=== PATIENT | male | born 1975 | race Caucasian/White ===

== ENCOUNTER 2018-05-23 06:19 | Observation (INO) ==
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
--- NOTE | 2018-05-22 11:22 | History and Physical Report ---
DATE OF ADMISSION: 05/23/2018 CHIEF COMPLAINT: Arm pain, weakness of upper extremity, difficulty. HISTORY: Maryann is delightful. He is 42. He has immense compromised left upper extremity profound weakness, deficits to his trapezius, deltoid function, biceps function. He has 2-level cervical spine cord compression. PAST MEDICAL HISTORY: Rheumatoid arthritis, anxiety. No hypertension, no carcinoma. Positive for obesity. PAST SURGICAL HISTORY: Includes bilateral hip surgery, cholecystectomy, ankle surgery. ALLERGIES: TRAMADOL, PENICILLIN. MEDICATIONS: Zanaflex, Percocet, B12. REVIEW OF SYSTEMS: He denies any blurred vision, double vision, tinnitus, or vertigo. Denies any fevers, sweats, chills. Denies any chest pain, palpitations. No shortness of breath. No nausea, vomiting. No urgency, frequency. No dysuria. No memory loss, sleep issues, or depression. OBJECTIVE: GENERAL: He is 5 feet 11 inches. He is 326 pounds. He is in distress. HEENT: Essentially normal. LUNGS: Clear to auscultation. CARDIAC: Regular rate and rhythm, 80 beats per minute. ABDOMEN: Soft, nontender, bowel sounds present. He is obese. NEUROLOGICAL: He has deficits of biceps, triceps function, loss of reflexes. He has no hyperreflexia. IMAGING: X-rays demonstrate 2-level pathology, cervical spine, C4-C5, C5-C6. IMPRESSION: Cord compression, cervical spine, C4-C5, C5-C6. PLAN: Includes an ACDF of cervical spine with iliac crest bone graft, C4-C5 and C5-C6.
[~2018-05-23 06:19] MED LIST: CLINDAMYCIN 600 MG/54 ML BAG IV SCH; LR 15ML/HR IV SCH; LR 60ML/HR IV SCH; SODIUM CHLORIDE 0.9% 1,000 ML IV SCH
[2018-05-23] MEDS ORDERED: ONDANSETRON INJ 2 MG/ML 2 ML VIAL ONE (06:52)
[2018-05-23] MEDS ORDERED: DEXAMETHASONE SOD INJ 4 MG/ML VIAL ONE (06:52)
[2018-05-23] MEDS ORDERED: fentaNYL citrate 100 MCG/2 ML VIAL ONE ×4 (06:52→10:00)
[2018-05-23] MEDS ORDERED: MIDAZOLAM HCL 1 MG/ML 2ML VIAL ONE (06:52)
[2018-05-23] MEDS ORDERED: PROPOFOL IV EMULSION 10 MG/ML 20 ML VIAL IV ONE ×2 (06:52→09:42)
[2018-05-23] MEDS ORDERED: LIDOCAINE HCL 2% 2 ML VIAL/AMP(20MG/ML) INFIL ONE (06:52)
[2018-05-23] MEDS ORDERED: SUCCINYLCHOLINE CHLORIDE 20 MG/ML 10 ML VIAL ONE (06:52)
[2018-05-23] MEDS ORDERED: ROCURONIUM BROMIDE 10 MG/ML 5 ML VIAL ONE (06:52)
[2018-05-23] MEDS ORDERED: LARYING-O-JET KIT (LTA) ONE (06:52)
[2018-05-23] MEDS ORDERED: ACETAMINOPHEN 1000 MG/100 ML IV IV ONE (07:07)
--- NOTE | 2018-05-23 07:15 | History & Physical Bridge Note ---
Date of Service May 23, 2018 History & Physical Bridge Note I have examined the patient, reviewed the History & Physical and in the interval since the performance of the History & Physical I have noted the following changes of clinical significance: no changes noted
[2018-05-23] MEDS ORDERED: GELATIN SPONGE SZ 100 ONE (07:32)
[2018-05-23] MEDS ORDERED: BACITRACIN INJ 50,000 UNIT VIAL ONE (07:32)
[2018-05-23] MEDS ORDERED: BUPIVACAINE/EPINEPHRINE 0.5% MPF 1:200,000 30 ML VIAL ONE (07:32)
[2018-05-23] MEDS ORDERED: THROMBIN FOR SOLN 20000 UNIT KIT ONE (07:32)
[2018-05-23] MEDS ORDERED: ONDANSETRON INJ 2 MG/ML 2 ML VIAL IV PRN ×2 (07:57→12:00)
[2018-05-23] MEDS ORDERED: ATROPINE SULFATE 0.1 MG/ML 10ML SYR IV PRN (07:57)
[2018-05-23] MEDS ORDERED: ePHEDrine sulfate 50 MG/ML AMP IV PRN (07:57)
[2018-05-23] MEDS ORDERED: PROMETHAZINE HCL 12.5 MG in SODIUM CHLORIDE 0.9% 50 ML IV PRN (07:57)
[2018-05-23] MEDS ORDERED: VANCOMYCIN HCL 1000MG/20ML VIAL ONE (08:12)
[2018-05-23] MEDS ORDERED: NEOSTIGMINE METHYLSULFATE 5 MG/5 ML SYR ONE (09:44)
[2018-05-23] MEDS ORDERED: GLYCOPYRROLATE 0.2 MG/ML VIAL ONE (09:44)
--- NOTE | 2018-05-23 09:53 | Post Operative Brief Note ---
Immediate Post Op Note v1 Date of Surgery May 23, 2018 Pre & Post Diagnosis Operation Date: 05/23/18 08:00 Pre-Op Diagnosis: Cervical Stenosis, Disc Herniation Post-Op Diagnosis: Cervical Stenosis, Disc Herniation Procedure Operation Date: 05/23/18 08:00 Actual Procedures p C4-C5, C5-C6 Anterior Cervical Discectomy and Fusion(Not Applicable) - Yrn Flores DO Surgeon Yrn Flores DO [place] [employer] des Estimated Blood Loss 10 Findings Consistent with Post-Op Diagnosis Drains Fisher Drain (1/4 inch)
--- NOTE | 2018-05-23 10:08 | Fluoroscopy Report ---
FL spine 1V any level CLINICAL HISTORY: C4-C6 ACDF COMPARISON STUDY: Cervical spine MRI April 03, 2018. FLUOROSCOPY TIME: 5.7. FLUOROSCOPIC IMAGES: 1 FINDINGS: Exact localization is difficult given partial visualization of the cervical spine on this l ateral fluoroscopic image. This exam demonstrates multilevel anterior fusion. IMPRESSION: Fluoroscopic images from multilevel anterior cervical fusion. Electronically signed by: Patrick Bravo M.D. 05/23/2018 10:07 AM
[2018-05-23] MEDS: fentaNYL citrate 100 MCG/2 ML VIAL IV PRN ×2 (10:10→10:15)
[2018-05-23] MEDS: HYDROmorphone INJ 2 MG/ML SYR/VIAL IV PRN ×6 (10:24→10:52)
[2018-05-23] MEDS ORDERED: LABETALOL HCL IV 5 MG/ML 20ML IV ONE (11:04)
[2018-05-23] MEDS ORDERED: LABETALOL HCL IV 5 MG/ML 20ML IV STA (11:04)
--- NOTE | 2018-05-23 11:26 | Anesthesiology Progress Note ---
Date of Service May 23, 2018 Anesthesia Post Procedure Vital Signs Vital Signs: Temp Pulse Resp BP Pulse Ox 05/23/18 11:20 37.2 C 94 H 20 155/106 H 95 05/23/18 11:10 115 H 15 178/100 H 98 05/23/18 07:45 80 14 157/103 H 98 05/23/18 07:15 88 15 160/104 H 96 05/23/18 06:44 37 C 96 H 19 183/110 H 99 Pain Intensity Neck: Pain Intensity: 6 Notes Mental Status: alert / awake / arousable and participated in evaluation Patient Amnestic to Procedure: Yes Nausea / Vomiting: adequately controlled Pain: adequately controlled Airway Patency, RR, SpO2: stable & adequate BP & HR: stable & adequate Hydration State: stable & adequate Anesthetic Complications: no major complications apparent and Pt Satisfied with anesthetic care Notes: BP back to preoperative baseline - chronic htn that is currently not being treated as an outpatient- so best to keep at preoperative baseline and manage more aggressively as an outpatient.
[2018-05-23] MEDS ORDERED: MAGNESIUM HYDROXIDE SUSP 30 ML UDC PO PRN (12:00)
[2018-05-23] MEDS ORDERED: OXYCODONE HCL IR 5 MG TAB (IMMEDIATE RELEASE) PO PRN (12:00)
[2018-05-23] MEDS ORDERED: ACETAMINOPHEN 1,000 MG/100 ML VIAL IV PRN (12:00)
[2018-05-23] MEDS ORDERED: DEXAMETHASONE SOD PHOSPHATE 8 MG in SYRINGE 0 ML IV PRN (12:00)
[2018-05-23] MEDS ORDERED: LACTATED RINGER'S 1,000 ML IV SCH (12:00)
[2018-05-23] MEDS ORDERED: TIZANIDINE HCL 4 MG TABLET PO PRN (12:00)
[2018-05-23] MEDS ORDERED: NALOXONE HCL 0.4 MG/1 ML VIAL/CARP IV PRN (12:00)
[2018-05-23] MEDS ORDERED: LORazepam 0.5 MG/1 ML VIAL IV PRN (12:00)
[2018-05-23] MEDS ORDERED: RACEPINEPHRINE 2.25% NEBU SOLN 0.5 ML VIAL INH PRN (12:00)
[2018-05-23] MEDS: HYDROmorphone INJ 1 MG/ML SYRINGE IV PRN ×2 (12:34→18:15)
[2018-05-23] MEDS: DEXAMETHASONE SOD PHOSPHATE 6 MG in SYRINGE 0 ML IV SCH ×2 (14:04→22:33)
[2018-05-23] MEDS: LITHIUM CARBONATE 450 MG TABCR PO SCH ×2 (15:11→19:56)
--- NOTE | 2018-05-23 15:31 | Operative Report ---
DATE OF OPERATION: 05/23/2018 PREOPERATIVE DIAGNOSIS: Spinal cord compression, cervical spine. POSTOPERATIVE DIAGNOSIS: Spinal cord compression, cervical spine. PROCEDURES: Included anterior cervical discectomy and fusion C4-C5, C5-C6 cervical spine, decompression of the spinal canal. An anterior cervical fusion provided. Anterior cervical implant, a structural PEEK device filled with autograft. There was no iliac crest graft harvested. The bone graft used was an autograft mixed with a material called DBM which is a bone matrix. IMPLANTS USED: By the [employer]. DESCRIPTION OF PROCEDURE: The patient was taken to the operating room and general intubated anesthetic provided to the patient, placed and kept supine, scrubbed, prepped and draped sterile. We made a transverse skin incision right over approximately the 5 vertebrae dissecting, the soft tissue, put in deep hand-held retractors. We settled on the C4-C5 interspace and C5-C6 interspaces. Up at the C4-C5 interspace, we took off first a significant amount of osteophyte. We worked our way back to the spinal canal. We did foraminotomies, partial facetectomies. I was able to take out all visible disc material to each uncovertebral joint and back and through the posterior longitudinal ligament. We then moved our retractors down to the C5-C6 interspace. We took off a large anterior osteophyte used on the bone grafting procedure and fusion procedure at the end of the case. We similarly took down the annulus, we did discectomy, we were ought back to the posterior longitudinal ligament, completed the foraminotomies. All visible material vacated my opinion at C5-C6, I was pleased with the decompression aspect of the procedure. We then went to the spinal implants from the [employer]. We wrote to come up with an implant which was PEEK and titanium fix with a screw up, brine process operator. It called coalition. This was filled with the patient's own bone or autograft. We put a coalition device up at C4-C5 and C5-C6 using again a combination of autograft and demineralized bone matrix. We irrigated, we fastened the implants, did secure screw, closed in layers over a James drain. Sterile dressing applied. The patient returned to PACU stable. ESTIMATED BLOOD LOSS: 10 mL. There were no apparent complications. I attest to the content of the Intraoperative Record and any orders documented therein. Any exception s are noted below.
[2018-05-23] MEDS: OXYCODONE HCL IR 5 MG TAB (IMMEDIATE RELEASE) PO PRN ×2 (16:20→23:56)
[2018-05-23] MEDS: CLINDAMYCIN 600 MG in DEXTROSE 5% 50 ML IV SCH ×2 (16:21→23:56)
[2018-05-23] MEDS: DOCUSATE SODIUM 100 MG CAP PO SCH (19:55)
[2018-05-24] MEDS: OXYCODONE HCL IR 5 MG TAB (IMMEDIATE RELEASE) PO PRN (06:47)
[2018-05-24] MEDS: DEXAMETHASONE SOD PHOSPHATE 6 MG in SYRINGE 0 ML IV SCH (06:47)
--- NOTE | 2018-05-24 07:34 | Anesthesiology Progress Note ---
Date of Service May 24, 2018 Anesthesia Post Procedure Vital Signs Vital Signs: Temp Pulse Pulse Pulse Pulse Resp BP 05/24/18 06:30 36.5 C 90 16 05/24/18 04:45 36.6 C 93 H 16 05/24/18 03:44 98 H 18 05/24/18 02:30 36.6 C 99 H 20 05/24/18 00:49 36.4 C L 93 H 20 05/23/18 23:32 87 16 05/23/18 22:38 36.4 C L 106 H 18 05/23/18 20:36 36.8 C 100 H 16 05/23/18 19:59 94 H 05/23/18 19:30 108 H 16 05/23/18 18:43 36.6 C 109 H 16 05/23/18 16:45 96 H 16 05/23/18 15:27 93 H 18 05/23/18 14:54 36.8 C 103 H 18 05/23/18 13:50 36.7 C 100 H 16 05/23/18 12:39 36.8 C 106 H 16 05/23/18 12:15 36.8 C 102 H 16 05/23/18 12:05 99 H 18 05/23/18 11:45 36.8 C 95 H 95 H 16 05/23/18 11:26 95 H 14 05/23/18 11:25 96 H 23 05/23/18 11:21 94 H 14 155/106 H 05/23/18 11:20 37.2 C 94 H 20 05/23/18 11:19 98 H 22 172/112 H 05/23/18 11:15 93 H 28 H 178/100 H 05/23/18 11:11 97 H 12 178/100 H 05/23/18 11:10 112 H 115 H 25 H 05/23/18 11:06 113 H 12 164/117 H 05/23/18 11:05 125 H 13 05/23/18 11:01 126 H 17 170/112 H 05/23/18 11:00 111 H 10 L 05/23/18 10:56 111 H 17 144/108 H 05/23/18 10:55 109 H 12 05/23/18 10:51 109 H 14 159/107 H 05/23/18 10:50 117 H 13 05/23/18 10:46 110 H 9 L 164/116 H 05/23/18 10:45 111 H 11 L 05/23/18 10:41 121 H 16 161/111 H 05/23/18 10:40 115 H 10 L 05/23/18 10:36 121 H 21 155/94 H 05/23/18 10:35 115 H 12 05/23/18 10:31 107 H 16 164/110 H 05/23/18 10:30 117 H 16 05/23/18 10:29 123 H 15 165/104 H 05/23/18 10:25 118 H 15 05/23/18 10:21 114 H 10 L 156/101 H 05/23/18 10:20 114 H 18 05/23/18 10:16 109 H 19 149/115 H 05/23/18 10:15 124 H 15 05/23/18 10:11 101 H 16 149/104 H 05/23/18 10:10 100 H 21 05/23/18 10:07 109 H 164/105 H 05/23/18 07:45 80 14 BP Pulse Ox Pulse Ox 05/24/18 06:30 162/106 H 96 05/24/18 04:45 154/96 H 96 05/24/18 03:44 98 05/24/18 02:30 173/106 H 96 05/24/18 00:49 155/94 H 98 05/23/18 23:32 94 05/23/18 22:38 151/111 H 97 05/23/18 20:36 154/99 H 94 05/23/18 19:59 151/97 H 93 05/23/18 19:30 94 05/23/18 18:43 164/111 H 94 05/23/18 16:45 156/103 H 95 05/23/18 15:27 97 05/23/18 14:54 159/106 H 97 05/23/18 13:50 171/110 H 96 05/23/18 12:39 170/115 H 97 05/23/18 12:15 162/109 H 97 05/23/18 12:05 97 05/23/18 11:45 156/111 H 99 99 05/23/18 11:26 95 05/23/18 11:25 95 05/23/18 11:21 96 05/23/18 11:20 155/106 H 95 05/23/18 11:19 96 05/23/18 11:15 95 05/23/18 11:11 96 05/23/18 11:10 178/100 H 95 05/23/18 11:06 96 05/23/18 11:05 97 05/23/18 11:01 96 05/23/18 11:00 98 05/23/18 10:56 96 05/23/18 10:55 96 05/23/18 10:51 96 05/23/18 10:50 98 05/23/18 10:46 98 05/23/18 10:45 97 05/23/18 10:41 96 05/23/18 10:40 96 05/23/18 10:36 94 05/23/18 10:35 97 05/23/18 10:31 96 05/23/18 10:30 95 05/23/18 10:29 98 05/23/18 10:25 100 05/23/18 10:21 99 05/23/18 10:20 97 05/23/18 10:16 97 05/23/18 10:15 92 05/23/18 10:11 93 05/23/18 10:10 95 05/23/18 10:07 91 05/23/18 07:45 157/103 H 98 Pain Intensity Neck: Pain Intensity: 6 Posterior Neck: Pain Intensity: 8 Notes Mental Status: alert / awake / arousable and participated in evaluation Nausea / Vomiting: adequately controlled Pain: adequately controlled Airway Patency, RR, SpO2: stable & adequate BP & HR: stable & adequate Hydration State: stable & adequate
[2018-05-24] MEDS: DOCUSATE SODIUM 100 MG CAP PO SCH (08:38)
[2018-05-24] MEDS: LITHIUM CARBONATE 450 MG TABCR PO SCH (08:38)
[2018-05-24] MEDS: CLINDAMYCIN 600 MG in DEXTROSE 5% 50 ML IV SCH (08:39)
[2018-05-24] MEDS ORDERED: VITAMIN B COMPLEX TAB PO SCH (09:00)
[2018-05-24] MEDS ORDERED: SERTRALINE HCL 100 MG TABLET PO SCH (09:00)
--- NOTE | 2018-05-24 10:51 | Discharge Summary ---
He is alert, oriented. Minimal complaints of pain. Up, ambulatory. He had an uneventful 22 hour stay here at the hospital. He was discharged home this morning in improved stable condition. Instructions, precautions provided. Followup provided. Medication as well. The important thing is he wears his collar and stay upright when he is up and ambulatory.
[2018-05-25] MEDS ORDERED: BISACODYL 5 MG TABEC PO PRN (10:15)
--- NOTE | 2018-06-21 07:36 | Coding Query ---
CODING QUERY To promote full compliance with coding requirements relating to patient care, provider participation is requested in all cases of basketball player uncertainty. Please assist us with the question(s) below: Coding Question(s): Could you please clarify the laterality of the spinal decompression that was done? ____ Right ____ Left ____ Bilateral ____ Other - Please specify Physician's Response(s): Thank you Fiona Bryant Principal Diagnosis: "that condition established after study, to be chiefly responsible for occasioning the admission of the patient to the hospital for care." Co-Existing Principal Diagnosis: "when two or more diagnoses equally meet the criteria for principal diagnosis as determined by the circumstances of admission, diagnostic work up, and/or therapy provided, and the Alphabetic Index, Tabular List, or another coding guideline does not provide sequencing direction, any one of the diagnoses may be sequenced first." "When the physician has documented what appears to be a current diagnosis in the body of the record, but has not included the diagnosis in the final diagnostic statement, the physician should be asked whether the diagnosis should be added." (Source [facility] 2 QTR90. p3-4) HERBERT
--- NOTE | 2018-06-21 09:20 | Operative Report ---
DATE OF OPERATION: 05/23/2018 CODING QUERY To clarify the decompression, cervical spine, it was a bilateral procedure. I attest to the content of the Intraoperative Record and any orders documented therein. Any exception s are noted below.
== END 2018-05-24 09:32 | disposition home or self-care (01) ==
LOC: ASU 06:19 → 3E 06:19